=== PATIENT | female | born 1940 | race Native Hawaiian/Other Pacific Islander ===

== ENCOUNTER 2018-06-09 06:26 | Outpatient (CLI) | payer OTHER ==
[2018-06-09 07:10] LABS: PLATELET COUNT 320 K/uL (152-353)
[2018-06-09 07:30] LABS: POTASSIUM 3.7 mmol/L (3.6-5.2)
== END 2018-06-09 20:36 | disposition home or self-care (01) ==
LOC: LABW 06:26
PROVIDERS: Internal Medicine
DX: I10 Essential (primary) hypertension (principal)
CPT/HCPCS: 36415; 80053; 80061; 81000; 82306; 84439; 84443; 85027

== ENCOUNTER 2019-06-20 10:03 | Outpatient (CLI) | payer OTHER ==
[2019-06-20 10:59] LABS: PLATELET COUNT 389 K/uL (152-353)
== END 2019-06-20 19:12 | disposition home or self-care (01) ==
LOC: LAB 10:03
PROVIDERS: Internal Medicine
DX: Z00.00 Encounter for general adult medical examination without abnormal findings (principal); Z13.820 Encounter for screening for osteoporosis; E55.9 Vitamin D deficiency, unspecified; I10 Essential (primary) hypertension; R82.998 Other abnormal findings in urine
CPT/HCPCS: 80053; 80061; 81000; 82306; 84439; 84443; 85027; 87077; 87086; 87088; 87186

== ENCOUNTER 2019-06-26 11:25 | Outpatient (CLI) | payer OTHER | END 2019-06-26 22:28 | disposition home or self-care (01) | LOC: LABW 11:25 | DX: D64.9 Anemia, unspecified (principal) | CPT/HCPCS: 36415; 82607; 82728; 82747; 83540; 83550 ==

== ENCOUNTER 2019-10-22 14:02 | Outpatient (CLI) | payer OTHER | END 2019-10-22 20:39 | disposition home or self-care (01) | LOC: US 14:02 | DX: I87.2 Venous insufficiency (chronic) (peripheral) (principal); M79.89 Other specified soft tissue disorders ==

== ENCOUNTER 2019-11-28 09:26 | Outpatient (CLI) | payer OTHER | END 2019-11-28 20:41 | disposition home or self-care (01) | LOC: US 09:26 → RAD 09:26 → US 20:41 | DX: M79.89 Other specified soft tissue disorders (principal); G31.84 Mild cognitive impairment of uncertain or unknown etiology; R51 Headache ==

== ENCOUNTER 2020-03-18 08:51 | Outpatient (CLI) | payer OTHER | END 2020-03-18 21:25 | disposition home or self-care (01) | LOC: US 08:51 | DX: R10.821 Right upper quadrant rebound abdominal tenderness (principal) ==

== ENCOUNTER 2020-04-13 07:45 | Outpatient (CLI) | payer OTHER | END 2020-04-13 19:11 | disposition home or self-care (01) | LOC: RESP 07:45 | DX: R07.89 Other chest pain (principal); R01.1 Cardiac murmur, unspecified; R00.2 Palpitations | CPT/HCPCS: 93225 ==

== ENCOUNTER 2020-05-12 16:08 | Inpatient (IN) | payer OTHER ==
[~2020-05-12] VITALS: Ht 160 cm; Wt 65.5 kg
[2020-05-12 17:10] LABS: PLATELET COUNT 440 K/uL (152-353)
[2020-05-12 17:29] LABS: POTASSIUM 2.9 mmol/L (3.6-5.2)
[2020-05-12 20:00] VITALS: BP 142/56; TEMP 98
[2020-05-12 20:46] VITALS: BP 142/56; TEMP 98.3; Ht 160 cm; Wt 65.5 kg
[2020-05-13] VITALS (21 sets, daily range): BP systolic 131–184; BP diastolic 45–85; TEMP 97.3–98.9
[2020-05-13] MEDS ORDERED: B-121000 MCG SC (07:21)
[2020-05-13] MEDS ORDERED: DONE5TAB PO (07:24)
[2020-05-13] MEDS ORDERED: AMMONIUM LACTATE12 % EX (07:27)
[2020-05-13] MEDS ORDERED: CYPROHEPTADINE H4 MG PO (07:28)
[2020-05-13] MEDS ORDERED: NAMENDA10 MG PO (07:31)
[2020-05-13] MEDS ORDERED: [UNRECOGNIZED DRUG - CODE] PO (07:32)
[2020-05-13] MEDS ORDERED: POT CHLORIDE10 MEQ PO (07:35)
[2020-05-13 10:53] LABS: POTASSIUM 3.8 mmol/L (3.6-5.2)
[2020-05-14] VITALS (10 sets, daily range): BP systolic 120–191; BP diastolic 70–90; TEMP 97.5–98.7
[2020-05-15] VITALS: BP 170/85; TEMP 97.6
[2020-05-15 08:00] VITALS: BP 152/59; TEMP 98.5
[2020-05-15 12:00] VITALS: BP 151/66; TEMP 98.7
[2020-05-15 16:00] VITALS: BP 135/50; TEMP 97.7
[2020-05-15 19:01] LABS: POTASSIUM 3.2 mmol/L (3.6-5.2)
[2020-05-15 20:00] VITALS: BP 142/52; TEMP 97.9
[2020-05-16 00:06] VITALS: BP 167/68; TEMP 98.2
[2020-05-16 04:00] VITALS: BP 119/68; TEMP 98.4
[2020-05-16 08:00] VITALS: BP 99/75; TEMP 97.7
[2020-05-16 12:00] VITALS: BP 156/72; TEMP 98.7
[2020-05-16 16:00] VITALS: BP 182/84; TEMP 98.1
[2020-05-16 20:00] VITALS: BP 161/91; TEMP 98.5
[2020-05-17] VITALS: BP 179/74; TEMP 98.1
[2020-05-17 04:00] VITALS: BP 179/71; TEMP 98.4
[2020-05-17 07:23] LABS: POTASSIUM 3.1 mmol/L (3.6-5.2)
[2020-05-17 08:00] VITALS: BP 173/78; TEMP 98.2
[2020-05-17 10:27] LABS: PLATELET COUNT 392 K/uL (152-353)
[2020-05-17 12:00] VITALS: BP 151/64; TEMP 97.9
[2020-05-17 16:00] VITALS: BP 144/61; TEMP 098.6
[2020-05-17 20:00] VITALS: BP 131/62; TEMP 97.3
[2020-05-18] VITALS: BP 168/62; TEMP 98.7
[2020-05-18 04:00] VITALS: BP 147/52; TEMP 98.1
[2020-05-18 05:19] LABS: POTASSIUM 3.2 mmol/L (3.6-5.2)
[2020-05-18 08:00] VITALS: BP 146/45; TEMP 98.7
[2020-05-18 12:00] VITALS: BP 174/63; TEMP 98.4
[2020-05-18 16:00] VITALS: BP 147/49; TEMP 98.7
[2020-05-18 20:00] VITALS: BP 167/65; TEMP 98.2
[2020-05-19] VITALS: BP 160/53; TEMP 98.5
[2020-05-19 04:00] VITALS: BP 154/60; TEMP 98.2
[2020-05-19 08:00] VITALS: BP 162/60; TEMP 98.1
[2020-05-19 12:00] VITALS: BP 152/67; TEMP 98.1
[2020-05-19 12:14] LABS: PLATELET COUNT 372 K/uL (152-353)
[2020-05-19 12:16] LABS: POTASSIUM 3.6 mmol/L (3.6-5.2)
[2020-05-19 12:30] VITALS: BP 147/58
[2020-05-19 16:00] VITALS: BP 159/54; TEMP 98.6
[2020-05-20 04:00] VITALS: BP 161/61; TEMP 98
[2020-05-20 08:00] VITALS: BP 133/55; TEMP 99
[2020-05-20 12:00] VITALS: BP 159/42; TEMP 98.9
[2020-05-20 16:00] VITALS: BP 176/69; TEMP 98.1
[2020-05-21 04:00] VITALS: BP 160/58; TEMP 97.7
[2020-05-21 05:14] LABS: PLATELET COUNT 321 K/uL (152-353)
[2020-05-21 05:28] LABS: POTASSIUM 3.4 mmol/L (3.6-5.2)
[2020-05-21 08:00] VITALS: BP 166/62; TEMP 98.8
[2020-05-21 12:00] VITALS: BP 157/56; TEMP 99
[2020-05-21 16:00] VITALS: BP 149/62; TEMP 97.7
[2020-05-21 20:00] VITALS: BP 151/54; TEMP 98.4
[2020-05-22] VITALS: BP 158/52; TEMP 98.3
[2020-05-22 05:40] LABS: PLATELET COUNT 364 K/uL (152-353)
[2020-05-22 05:52] LABS: POTASSIUM 3.4 mmol/L (3.6-5.2)
[2020-05-22 08:00] VITALS: BP 164/54; TEMP 97.9
[2020-05-22 12:00] VITALS: BP 164/54; TEMP 97.9
[2020-05-22] MEDS ORDERED: CARDIZEM CD 120 MG PO (13:48)
== END 2020-05-22 17:30 | DRG 812 ==
LOC: MED/SURG 16:08
PROVIDERS: Internal Medicine Endocrinology, Diabetes & Metabolism; ADMIT Internal Medicine
PROC: 30233N1 Transfusion of Nonautologous Red Blood Cells into Peripheral Vein, Percutaneous Approach (ICD-10-PCS; principal; 2020-05-13)
PROC: 30233N1 Transfusion of Nonautologous Red Blood Cells into Peripheral Vein, Percutaneous Approach (ICD-10-PCS; 2020-05-14)
DX: D50.8 Other iron deficiency anemias (principal); N39.0 Urinary tract infection, site not specified; E87.6 Hypokalemia; F03.90 Unspecified dementia, unspecified severity, without behavioral disturbance, psychotic disturbance, mood disturbance, and anxiety; I10 Essential (primary) hypertension; B96.20 Unspecified Escherichia coli [E. coli] as the cause of diseases classified elsewhere
CPT/HCPCS: 36415; 80048; 80053; 81000; 82272; 82607; 82728; 82746; 83540; 83550; 83735; 85014; 85018; 85027; 86850; 86900; 86901; 86922; 87077; 87086; 87088; 87186; 87635; J0360; J0696; J1940; J2060; J2916; J3490; P9016; U0003

== ENCOUNTER 2020-05-22 13:55 | Inpatient (IN) | payer OTHER ==
[~2020-05-22 13:55] MED LIST: AMMONIUM LACTATE12 % EX; B-121000 MCG SC; CARDIZEM CD 120 MG PO; CYPROHEPTADINE H4 MG PO; DONE5TAB PO; NAMENDA10 MG PO; POT CHLORIDE10 MEQ PO; [UNRECOGNIZED DRUG - CODE] PO
== END 2020-05-31 08:00 | disposition still patient (30) ==
LOC: PAVB 13:55
PROVIDERS: ADMIT Internal Medicine

== ENCOUNTER 2020-05-25 09:14 | Outpatient (CLI) | payer OTHER ==
[2020-05-25 09:55] LABS: POTASSIUM 3.8 mmol/L (3.6-5.2)
[2020-05-25 09:57] LABS: PLATELET COUNT 393 K/uL (152-353)
== END 2020-05-25 20:27 | disposition home or self-care (01) ==
LOC: LAB 09:14
PROVIDERS: Internal Medicine
DX: I10 Essential (primary) hypertension (principal); D64.9 Anemia, unspecified; Z16.24 Resistance to multiple antibiotics; E55.9 Vitamin D deficiency, unspecified; E53.8 Deficiency of other specified B group vitamins; Z79.899 Other long term (current) drug therapy
CPT/HCPCS: 80053; 82306; 82607; 82728; 82746; 83036; 83540; 84443; 85027; 87081

== ENCOUNTER 2020-05-31 09:00 | Inpatient (IN) | payer OTHER | END 2020-06-30 10:12 | disposition still patient (30) | LOC: PAVB 09:00 | PROVIDERS: ADMIT Internal Medicine; ATTEND Internal Medicine ==

== ENCOUNTER 2020-06-30 11:34 | Inpatient (IN) | payer OTHER | END 2020-07-31 09:06 | disposition still patient (30) | LOC: PAVB 11:34 | PROVIDERS: ADMIT Internal Medicine; ATTEND Internal Medicine ==

== ENCOUNTER 2020-07-09 13:46 | Outpatient (CLI) | payer OTHER | END 2020-07-09 20:21 | disposition home or self-care (01) | LOC: MAMMO 13:46 | PROVIDERS: ATTEND Internal Medicine | DX: Z12.31 Encounter for screening mammogram for malignant neoplasm of breast (principal) ==

== ENCOUNTER 2020-07-13 13:49 | Outpatient (CLI) | payer OTHER | END 2020-07-13 21:44 | disposition home or self-care (01) | LOC: RAD 13:49 | PROVIDERS: ATTEND Internal Medicine | DX: N95.8 Other specified menopausal and perimenopausal disorders (principal) ==

== ENCOUNTER 2020-07-31 09:44 | Inpatient (IN) | payer OTHER | END 2020-08-31 14:42 | disposition still patient (30) | LOC: PAVB 09:44 | PROVIDERS: ADMIT Internal Medicine; ATTEND Internal Medicine ==

== ENCOUNTER 2020-08-01 06:25 | Outpatient (CLI) | payer OTHER ==
[2020-08-01 11:52] LABS: POTASSIUM 4.3 mmol/L (3.6-5.2)
== END 2020-08-01 19:36 | disposition home or self-care (01) ==
LOC: LAB 06:25
PROVIDERS: ATTEND Internal Medicine
DX: D64.89 Other specified anemias (principal)
CPT/HCPCS: 80048; 85014; 85018

== ENCOUNTER 2020-08-14 12:44 | Outpatient (CLI) | payer OTHER | END 2020-08-14 23:59 | disposition home or self-care (01) | LOC: RAD 12:44 | PROVIDERS: ATTEND Internal Medicine | DX: R09.02 Hypoxemia (principal) ==

== ENCOUNTER 2020-09-03 17:27 | Outpatient (CLI) | payer OTHER ==
[2020-09-03 18:09] LABS: PLATELET COUNT 434 K/uL (152-353)
== END 2020-09-03 20:12 | disposition home or self-care (01) ==
LOC: LAB 17:27
PROVIDERS: ATTEND Internal Medicine
DX: D50.8 Other iron deficiency anemias (principal); I87.2 Venous insufficiency (chronic) (peripheral); R06.02 Shortness of breath; R60.0 Localized edema
CPT/HCPCS: 80053; 83880; 85027; 85379

== ENCOUNTER 2020-09-04 12:48 | Outpatient (CLI) | payer OTHER | END 2020-09-04 19:36 | disposition home or self-care (01) | LOC: LAB 12:48 | PROVIDERS: ATTEND Internal Medicine | DX: D50.8 Other iron deficiency anemias (principal); I87.2 Venous insufficiency (chronic) (peripheral); R60.0 Localized edema; R06.02 Shortness of breath; R82.998 Other abnormal findings in urine; R79.89 Other specified abnormal findings of blood chemistry | CPT/HCPCS: 81000; 87077; 87086; 87088; 87186; A9540; A9567 ==

== ENCOUNTER 2020-09-12 11:06 | Outpatient (CLI) | payer OTHER | END 2020-09-12 22:26 | disposition home or self-care (01) | LOC: CT 11:06 | PROVIDERS: ATTEND Internal Medicine | DX: G51.0 Bell's palsy (principal); G81.94 Hemiplegia, unspecified affecting left nondominant side; M62.81 Muscle weakness (generalized) ==

== ENCOUNTER 2020-09-16 15:56 | Outpatient (CLI) | payer OTHER | END 2020-09-16 22:08 | disposition home or self-care (01) | LOC: CT 15:56 | PROVIDERS: ATTEND Internal Medicine | DX: G51.0 Bell's palsy (principal); G81.94 Hemiplegia, unspecified affecting left nondominant side ==